=== PATIENT | female | born 1955 | race Caucasian/White ===

== ENCOUNTER 2017-04-20 09:05 | Emergency (ER) | payer OTHER ==
[2017-04-20 09:24] VITALS: BP 144/82; PULSE 78; TEMP 98.1; BMI 24.7
[2017-04-20] MEDS ORDERED: ALBUTEROL SO4 2.5/IPRATROPIUM 0.5 INH SOL 3 ML VIAL.NEB. NEB ONE ×2 (11:06→11:08)
--- NOTE | 2017-04-20 11:27 | PDOC ---
History of Present Illness - General Chief Complaint: Cold Symptoms Stated Complaint: COLD Time Seen by Provider: 04/20/17 10:56 History Source: Patient Exam Limitations: No Limitations - History of Present Illness Initial Comments: 04/20/17 11:08 came to emergency department for evaluation of moist cough, fevers and chills runny nose and general body aches. States has been sick for proximally one week and been using [id number] medications for relief . is ill with same Timing/Duration: reports: changing over time, getting worse Severity: reports: mild, moderate Associated Symptoms: reports: chest pain/soreness, cough, fever/chills, nasal congestion, nasal drainage Past History - Travel Traveled outside of the country in the last 30 days: No Close contact w/someone who was outside of country & ill: No - Past Medical History Allergies/Adverse Reactions: Allergies Allergy/AdvReac Type Severity Reaction Status Date / Time No Known Allergies Allergy Verified 04/20/17 09:20 Home Medications: Ambulatory Orders Albuterol Sulfate Inhaler - [Ventolin HFA Inhaler -] 1 - 2 inh PO Q4H #1 inhaler 04/20/17 Atorvastatin Ca [Lipitor] 40 mg PO HS 04/20/17 Azithromycin [Zithromax -] 250 mg PO UTDICT #6 tab 04/20/17 Hydrochlorothiazide 25 mg PO 04/20/17 Lisinopril [Prinivil -] 40 mg PO DAILY 04/20/17 Sitagliptin Phos/Metformin HCl [Janumet Xr 100-1,000 mg Tablet] 100 - 1,000 mg PO ASDIR 04/20/17 COPD: No Diabetes: Yes HTN: Yes - Surgical History Cholecystectomy: Yes - Suicide/Smoking/Psychosocial Hx Smoking History: Never smoked Respiratory Specific PMHX - Complaint Specific PMHX Bronchitis: Yes Review of Systems - Review of Systems Able to Perform ROS?: Yes Is the patient limited Hungarian proficient: Yes Constitutional: Yes: Symptoms Reported, See HPI, Chills, Fever, Malaise HEENTM: Yes: Symptoms Reported, See HPI, Nose Congestion Respiratory: Yes: Symptoms reported, See HPI, Cough, Wheezing Musculoskeletal: Yes: See HPI. No: Symptoms Reported Integumentary: Yes: See HPI. No: Symptoms Reported Neurological: No: Symptoms reported All Other Systems: Reviewed and Negative *Physical Exam - Vital Signs Last Vital Signs Temp Pulse Resp BP Pulse Ox 98.1 F 78 19 144/82 98 04/20/17 09:21 04/20/17 09:21 04/20/17 09:21 04/20/17 09:21 04/20/17 09:21 - Physical Exam General Appearance: Yes: Nourished, Appropriately Dressed HEENT: positive: MURPHY, TMs Normal, Pharynx Normal, Pharyngeal Erythema, Rhinorrhea, Sinus Tenderness Neck: positive: Supple. negative: Tender, Lymphadenopathy (R), Lymphadenopathy (L) Respiratory/Chest: positive: Rhonchi, Wheezing. negative: Chest Tender, Lungs Clear, Normal Breath Sounds (coarse insp and exp BS), Respiratory Distress Cardiovascular: positive: Regular Rhythm Gastrointestinal/Abdominal: positive: Soft. 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, Fully Oriented, Alert, Normal Mood/ Affect, Normal Response, Motor Strength 07/03 ED Treatment Course - RADIOLOGY Radiology Studies Ordered: Category Date Time Status CHEST PA & LAT [RAD] Stat Radiology 04/20/17 11:08 Ordered Progress Note - Progress Note Progress Note: DuoNeb provided with much clearing after first treatment, chest x-ray *DC/Admit/Observation/Transfer Diagnosis at time of Disposition: Bronchitis - Discharge Dispostion Disposition: HOME Condition at time of disposition: Stable Admit: No - Prescriptions Prescriptions: Albuterol Sulfate Inhaler - [Ventolin HFA Inhaler -] 1 - 2 inh PO Q4H #1 inhaler Azithromycin [Zithromax -] 250 mg PO UTDICT #6 tab - Referrals Referrals: Liliana Casarez MD [Primary Care Provider] - - Patient Instructions Printed Discharge Instructions: DI for Acute Bronchitis Additional Instructions: Rest, drink lots of fluids: Teas, water, soups, Pedialyte Saltwater gargles Steamy showers/seem to face break up mucus Avoid contact with others until fevers and cough resolved Lots of handwashing and good hygiene Continue [id number] medications for symptomatic relief Tylenol or Motrin for fever and pain Continue albuterol nebulizers every 4-6 hours for the next 2 days then as needed for continued cough Zithromax as directed Followup with private physician in one to 2 days Return to emergency department / pediatric hospital for worsened symptoms, fevers, dehydration - Post Discharge Activity Forms/Work/School Notes: Back to Work
== END 2017-04-20 12:21 | disposition home or self-care (01) ==
LOC: JERFT 09:05
PROC: 3E0F7GC Introduction of Other Therapeutic Substance into Respiratory Tract, Via Natural or Artificial Opening (ICD-10-PCS; principal; 2017-04-20)
DX: J40 Bronchitis, not specified as acute or chronic (principal)
CPT/HCPCS: 71046-TC-FY; 94640; 99281-25